=== PATIENT | male | born 1970 | race Caucasian/White ===

== ENCOUNTER 2019-09-23 03:29 | Emergency (ER) | payer SELFPAY ==
[2019-09-23 03:43] VITALS: BP 138/77
--- NOTE | 2019-09-23 04:12 | ED Physician Documentation ---
PD HPI URI - Stated complaint Stated Complaint: DIFF BREATHING - Chief complaint Chief Complaint: Resp - History obtained from History obtained from: Patient - History of Present Illness Timing - onset: How many weeks ago (1) Timing details: Gradual onset Associated symptoms: Nasal congestion, Rhinorrhea. No: Fever, Dry cough, Productive cough Similar symptoms before: Has not had sx before Recently seen: Not recently seen - Additional information Additional information: c/o sinus congestion x 1 week which has significantly improved but moved down into here (points to upper neck). 2-3 days of hoarse voice. no cough, minimal dyspnea (not short of breath but sometimes I feel like I cant get a full breath in Review of Systems Constitutional: denies: Fever Ears: reports: Ear pain Nose: reports: Rhinorrhea / runny nose, Congestion Throat: denies: Sore throat Cardiac: reports: Reviewed and negative Respiratory: reports: Dyspnea. denies: Cough GI: reports: Reviewed and negative PD PAST MEDICAL HISTORY - Past Medical History Past Medical History: Yes Cardiovascular: None Respiratory: None Neuro: None Endocrine/Autoimmune: None GI: Other : None HEENT: None Psych: None Musculoskeletal: None Derm: None Other Past Medical History: colon cancer, in remission - Past Surgical History Past Surgical History: Yes General: Bowel surgery, Colonoscopy, EGD Ortho: Other - Present Medications Home Medications: Ambulatory Orders Medication Instructions Recorded Confirmed Omeprazole 10 - 20 mg PO PRN PRN 09/23/19 09/23/19 - Allergies Allergies/Adverse Reactions: Allergies Allergy/AdvReac Type Severity Reaction Status Date / Time No Known Drug Allergies Allergy Verified 09/23/19 03:44 - Social History Does the pt smoke?: No Smoking Status: Never smoker Does the pt drink ETOH?: Yes Does the pt have substance abuse?: No - Immunizations Immunizations are current?: Yes - POLST Patient has POLST: No PD ED PE NORMAL - Vitals Vital signs reviewed: Yes - General General: Alert and oriented X 3, No acute distress, Well developed/nourished, Other (speaks full sentences with no respiratory distress although voice is soft, hoarse) - HEENT HEENT: Moist mucous membranes, Pharynx benign, Other (mild erythema left TM ) - Neck Neck: Supple, no meningeal sign - Cardiac Cardiac: RRR, No murmur - Respiratory Respiratory: No respiratory distress, Clear bilaterally Results - Vitals Vitals: Oxygen O2 Source Room air - Rads (name of study) chest xray Radiology: Prelim report reviewed, See rad report PD MEDICAL DECISION MAKING - ED course Complexity details: reviewed results, re-evaluated patient, considered differential, d/w patient Departure - Departure Disposition: 01 Home, Self Care Clinical Impression: Upper respiratory tract infection Qualifiers: URI type: unspecified viral URI Qualified Code(s): J06.9 - Acute upper respiratory infection, unspecified Condition: Good Instructions: ED Upper Resp Infec No Abx Tx Discharge Date/Time: 09/23/19 05:39
--- NOTE | 2019-09-23 05:05 | XRAY Report ---
Reason: cough, reduced lung sounds Procedure Date: 09/23/2019 Accession Number: [id number] / [id number] Procedure: XR - Chest 2 View X-Ray CPT Code: 06534 Final Report FULL RESULT: EXAM: CHEST RADIOGRAPHY EXAM DATE: 09/23/2019 04:48 AM CLINICAL HISTORY: Cough, reduced lung sounds. Patient has been feeling ill for 1 week. COMPARISON: None. TECHNIQUE: 2 views. FINDINGS: Lungs/Pleura: Clear lungs. No pleural effusion. No pneumothorax. Mediastinum: Within exam limitations, the cardiomediastinal contour is normal. Other: None. IMPRESSION: Normal 2-view chest radiography. [facility]
== END 2019-09-23 05:39 | disposition home or self-care (01) ==
LOC: ED 03:29
DX: J06.9 Acute upper respiratory infection, unspecified (principal)
CPT/HCPCS: 71046; 99283; 99284